=== PATIENT | female | born 1970 | race Caucasian/White ===

== ENCOUNTER 2018-09-21 16:24 | Outpatient (CLI) | payer MEDICARE, MEDICAID, SELFPAY ==
--- NOTE | 2018-09-21 08:58 | DI.RAD_ITS ---
SYMPTOM/DIAGNOSIS: RT HAND PAIN, M79.641M Y93.23 RIGHT THUMB: There are linear lucencies through the distal phalanx of the thumb suspicious for a nondisplaced fracture. Degenerative changes of the interphalangeal joint are also seen. There is a smoothly marginated bony density seen at the dorsal aspect of the interphalangeal joint. Mild degenerative changes are seen at the first metacarpal phalangeal joint. IMPRESSION: Nondisplaced fracture of the distal phalanx of the thumb.
== END 2018-09-21 16:44 ==
PROVIDERS: PCP Internal Medicine; Visit Provider Physician Assistant Medical
DX: S62.524A Nondisplaced fracture of distal phalanx of right thumb, initial encounter for closed fracture (principal); M79.641 Pain in right hand; M19.041 Primary osteoarthritis, right hand; M18.11 Unilateral primary osteoarthritis of first carpometacarpal joint, right hand
CPT/HCPCS: 73140

== ENCOUNTER 2018-11-15 15:57 | Outpatient (REF) | payer MEDICARE, MEDICAID, SELFPAY ==
[2018-11-15 19:15] LABS: Cholesterol 220 mg/dL (50-200); Glucose 93 mg/dL (70-100); HDL Cholesterol 66 mg/dL (40-60); LDL CHOLESTEROL 140 mg/dL (<100); TSH 1.12 uIU/mL (0.358-3.74); Triglyceride 87 mg/dL (30-150)
== END 2018-11-15 16:17 ==
LOC: NCHCN 15:57
PROVIDERS: PCP Internal Medicine; Visit Provider Internal Medicine
DX: F31.9 Bipolar disorder, unspecified (principal); F51.04 Psychophysiologic insomnia; E78.89 Other lipoprotein metabolism disorders; Z13.1 Encounter for screening for diabetes mellitus
CPT/HCPCS: 80061; 82947; 83721; 84443

== ENCOUNTER 2020-03-06 10:25 | Outpatient (CLI) | payer MEDICARE, MEDICAID, SELFPAY ==
[2020-03-08 08:00] LABS: COVID-19 RT-PCR Result NEGATIVE (Negative)
== END 2020-03-06 10:45 ==
PROVIDERS: PCP Internal Medicine; Visit Provider Internal Medicine
DX: Z03.818 Encounter for observation for suspected exposure to other biological agents ruled out (principal)
CPT/HCPCS: U0003

== ENCOUNTER 2020-04-16 12:40 | Outpatient (REF) | payer MEDICARE, MEDICAID, SELFPAY ==
[2020-04-16 20:37] LABS: ALT 25 U/L (14-59); Anion Gap 9.8 mmol/L (3-11); BUN 18 mg/dL (7-18); CO2 29.2 mmol/L (21.0-32.0); CREATININE 1.09 mg/dL (0.55-1.02); Calcium 8.9 mg/dL (8.5-10.1); Chloride 104 mmol/L (98-107); Estimated GFR 52.92 (mL/min/1.73m2); Glucose 99 mg/dL (74-106); LDL CHOLESTEROL 180 mg/dL (<100); Potassium 4.5 mmol/L (3.5-5.1); Sodium 143 mmol/L (136-145)
== END 2020-04-16 13:00 ==
LOC: NCHCN 12:40
PROVIDERS: PCP Internal Medicine; Visit Provider Internal Medicine
DX: L30.9 Dermatitis, unspecified (principal); E04.2 Nontoxic multinodular goiter; E78.89 Other lipoprotein metabolism disorders
CPT/HCPCS: 80048; 83721; 84443; 84460

== ENCOUNTER → 2020-06-21 09:47 | Outpatient (BNVA) | payer MEDICARE, MEDICAID, SELFPAY | PROVIDERS: PCP Internal Medicine; Referring Provider Internal Medicine; Visit Provider Physical Therapy Assistant | DX: Z12.11 Encounter for screening for malignant neoplasm of colon (principal) ==

== ENCOUNTER 2020-07-20 15:00 | Outpatient (REF) | payer MEDICARE, MEDICAID, SELFPAY ==
[2020-07-24 10:13] LABS: COVID-19 RT-PCR Result NEGATIVE (Negative)
== END 2020-07-20 15:20 ==
LOC: NCHCN 15:00
PROVIDERS: PCP Internal Medicine; Visit Provider Internal Medicine
DX: Z20.828 Contact with and (suspected) exposure to other viral communicable diseases (principal)
CPT/HCPCS: U0003

== ENCOUNTER 2020-11-26 16:03 | Outpatient (REF) | payer MEDICARE, MEDICAID, SELFPAY ==
[2020-11-26 15:44] LABS: Lithium 0.8 mmol/l (0.6-1.2)
[2020-11-26 16:00] LABS: Anion Gap 10.4 mmol/L (3-11); BUN 16 mg/dL (7-18); CO2 24.6 mmol/L (21.0-32.0); CREATININE 1.1 mg/dL (0.55-1.02); Calcium 9.2 mg/dL (8.5-10.1); Chloride 104 mmol/L (98-107); Estimated GFR 52.16 (mL/min/1.73m2); Glucose 127 mg/dL (74-106); Magnesium 2.3 mg/dL (1.8-2.4); Potassium 4.8 mmol/L (3.5-5.1); Sodium 139 mmol/L (136-145); TSH (W/Ref FT4) 2.16 uIU/mL (0.36-3.74)
== END 2020-11-26 16:04 | disposition home or self-care (01) ==
LOC: NCHCN 16:03
PROVIDERS: PCP Internal Medicine; Visit Provider Internal Medicine
DX: F31.9 Bipolar disorder, unspecified (principal); Z51.81 Encounter for therapeutic drug level monitoring; Z79.899 Other long term (current) drug therapy
CPT/HCPCS: 80048; 80178; 83735; 84443

== ENCOUNTER 2021-03-28 12:56 | Outpatient (REF) | payer MEDICARE, MEDICAID, SELFPAY ==
[2021-03-28 19:30] LABS: Lithium 0.9 mmol/l (0.6-1.2)
[2021-03-28 19:42] LABS: ALT 34 U/L (14-59); AST 20 U/L (15-37); Alkaline Phosphatase 75 U/L (46-116); BUN 21 mg/dL (7-18); Bilirubin, Total 0.3 mg/dL (0.2-1.0); CREATININE 1.3 mg/dL (0.55-1.02); Calcium 9.3 mg/dL (8.5-10.1); Chloride 103 mmol/L (98-107); Estimated GFR 43.01 (mL/min/1.73m2); Glucose 86 mg/dL (74-106); Potassium 4.6 mmol/L (3.5-5.1); Sodium 136 mmol/L (136-145); TSH 21.93 uIU/mL (0.36-3.74); Total Protein 8.1 g/dL (6.4-8.2)
== END 2021-03-28 12:57 | disposition home or self-care (01) ==
LOC: NCHCN 12:56
PROVIDERS: PCP Internal Medicine; Visit Provider Internal Medicine
DX: F31.9 Bipolar disorder, unspecified (principal); L40.9 Psoriasis, unspecified; Z51.81 Encounter for therapeutic drug level monitoring; Z79.899 Other long term (current) drug therapy
CPT/HCPCS: 80053; 80178; 84443

== ENCOUNTER 2021-04-24 14:50 | Outpatient (REF) | payer MEDICARE, MEDICAID, SELFPAY ==
[2021-04-24 21:09] LABS: Lithium 0.8 mmol/l (0.6-1.2)
[2021-04-24 21:21] LABS: Anion Gap 6.2 mmol/L (3-11); BUN 13 mg/dL (7-18); CO2 28.8 mmol/L (21.0-32.0); CREATININE 1.3 mg/dL (0.55-1.02); Calcium 9.4 mg/dL (8.5-10.1); Chloride 103 mmol/L (98-107); Estimated GFR 43.01 (mL/min/1.73m2); Glucose 84 mg/dL (74-106); Potassium 4.6 mmol/L (3.5-5.1); Sodium 138 mmol/L (136-145); TSH 6.13 uIU/mL (0.36-3.74)
== END 2021-04-24 14:51 | disposition home or self-care (01) ==
LOC: NCHCN 14:50
PROVIDERS: PCP Internal Medicine; Referring Provider Internal Medicine; Visit Provider Internal Medicine
DX: E78.5 Hyperlipidemia, unspecified (principal); F31.9 Bipolar disorder, unspecified
CPT/HCPCS: 80048; 80178; 84443

== ENCOUNTER 2021-08-15 18:15 | Outpatient (REF) | payer MEDICARE, MEDICAID, SELFPAY ==
[2021-08-15 19:36] LABS: Hemoglobin A1C 5.6 % (<5.7)
[2021-08-15 19:47] LABS: ALT 44 U/L (14-59); AST 25 U/L (15-37); Albumin 4.2 g/dL (3.4-5.0); Alkaline Phosphatase 78 U/L (46-116); Anion Gap 8.8 mmol/L (3-11); BUN 16 mg/dL (7-18); Bilirubin, Total 0.2 mg/dL (0.2-1.0); CO2 27.2 mmol/L (21.0-32.0); Calcium 9.2 mg/dL (8.5-10.1); Calculated LDL 199 mg/dL (<100); Chloride 102 mmol/L (98-107); Cholesterol 283 mg/dL (<200); Estimated GFR 58.22 (mL/min/1.73m2); Glucose 92 mg/dL (74-106); HDL Cholesterol 49 mg/dL (40-60); Potassium 4.5 mmol/L (3.5-5.1); Sodium 138 mmol/L (136-145); TSH 4.22 uIU/mL (0.36-3.74); Total Protein 8.2 g/dL (6.4-8.2); Triglyceride 179 mg/dL (<150)
== END 2021-08-15 18:16 | disposition home or self-care (01) ==
LOC: NCHCN 18:15
PROVIDERS: PCP Internal Medicine; Visit Provider Internal Medicine
DX: E66.3 Overweight (principal); F31.9 Bipolar disorder, unspecified
CPT/HCPCS: 80053; 80061; 83036; 84443

== ENCOUNTER → 2021-09-26 10:45 | Outpatient (BNVA) | payer MEDICARE, MEDICAID, SELFPAY | PROVIDERS: PCP Internal Medicine; Referring Provider Internal Medicine; Visit Provider Physical Therapy Assistant | DX: L98.8 Other specified disorders of the skin and subcutaneous tissue (principal) | CPT/HCPCS: 99213 ==

== ENCOUNTER → 2021-10-04 10:16 | Outpatient (BNVA) | payer MEDICARE, MEDICAID, SELFPAY | PROVIDERS: PCP Internal Medicine; Referring Provider Internal Medicine; Visit Provider Surgery | DX: C44.622 Squamous cell carcinoma of skin of right upper limb, including shoulder (principal) | CPT/HCPCS: 11602 ==

== ENCOUNTER 2021-10-04 11:30 | Outpatient (REF) | payer MEDICARE, MEDICAID, SELFPAY ==
--- NOTE | 2021-10-04 10:40 | SKI_PTH ---
PATIENT: Tessa Culver LOC: [facility] U#:[id number] AGE/SX: 50/F ROOM: RE10/04/[address]: Janay Metzger MD : 1970 BED: DIS: 10/04/2021 SPEC #: [id number] RECD: 10/04/21 12:57 STATUS: MELY REQ #: [id number] YAHIR: 10/04/21 10:[address]: Janay Metzger DEPT: Surgical Specimen RECD BY: Yenny Schultz ENTERED: 10/04/21 12:58 SP TYPE: ELIZABETH OROSCO DR: Alessandro Hollis Tissues: 1 - SKIN BIOPSY(SHAVE/PUNCH) Procedures: SKIN LEVEL 4 Comments: [id number]
--- OUTSIDE RECORDS SUMMARY | 2021-10-04 11:45 | XMS_ITS ---
:1970 Author Care Team Providers Name Role Phone LUPILLO GONZALES MD Primary Care Provider [phone] Allergies Code Code System Name Reaction Severity Status Onset NKDA ? Medications Name Status Start Date Stop Date ? ? amoxicillin 875 mg-potassium Completed ? 05/2021 clavulanate 125 mg tablet clonazepam 0.5 mg tablet Completed ? TAKE 1 TABLET BY MOUTH AT BEDTIME. MAY TAKE AN ADDITI ONAL 2 TABLETS PER MONTH. disulfiram 250 mg tablet Completed ? 021 TK 2 TS PO IN THE MORNING disulfiram 500 mg tablet Completed ? TAKE 1 TABLET BY MOUTH EVERY DAY. DO NOT START UNTIL 24 HOURS A LCOHOL FREE drospirenone 3 mg-ethinyl estradiol 0.02 mg tablet Completed ? 05/02/2021 TAKE 1 TABLET BY MOUTH DAILY fluocinonide 0.05 % topical cream Completed ? 05/02/2021 APPLY TO HAND RASH TWICE DAILY gabapentin 400 mg capsule Completed ? 2017 lamotrigine 200 mg tablet Active ? Not av ailable TAKE 1 TABLET BY MOUTH TWICE DAILY lithium carbonate ER 450 mg tablet,extended release Active ? Not available TAKE 1 TABLET BY MOUTH TWICE DAILY metronidazole 500 mg tablet Completed ? 04/17 TK 1 T PO TID naltrexone 50 mg tablet Completed ? 05/02/20 21 TK 1 T PO D penicillin V potassium 500 mg Completed ? tablet Plan B 0.75 mg tablet Completed 07/05/2010 07/18/2010 1 (one) Tablet: Q 12 hr ziprasidone 60 mg capsule Active ? Not av ailable Problems Name Status Onset Date Source ? 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 History Cervical Intraepithelial Neoplasia Unknown ? History Grade 1 Abnormal Cervical Papanicolaou Smear Unknown ? History Atypical Squamous Cells of Unknown ? Histo ry Undetermined Significance on Cervical Papanicolaou Smear SNOMED CT Concept Unknown ? History Procedures Date Name Performed by ? 08/21/2016 Leep Information not avai lable Notes: LEDA 2 ? Orthopedic Surgery Information not avai lable Notes: L ACL 02/15/2018 MAMMO, Screening, Tomosynthesis, [facility] Radiology (Internal) Bilateral [address] [place] [address] ([phone] ([address]) 01/14/2019 MAMMO, Screening, Tomosynthesis, [facility] Radiology (Internal) Bilateral [address], [place] [id number] (Work Place) 09/21/2019 US, Breast [facility] (Internal) [address] [place] [address] (Work Place) Results Lab Results Date Name Specimen Result Interpretation Description Value Range Status Address ? 05/02/2021 Pap Test, MISC ? Hpv see report ? Final [facility], Hospita l Lab Cervical (Interna l): [address] ? ? MISC ? Pap see report ? Final [facility] L [facility] (Internal) : [address] ? ? MISC ? Report (see ? Final [facility] below) Hospital L ab (Internal) : [address] 01/14/2019 Pap Test, MISC - Hpv see report ? Final [facility], Hospita l Lab Cervical (Interna l): [address] ? ? MISC - Pap see report ? Final [facility] L ab (Internal) : [address] ? ? MISC - Report (added) ? Corrected [facility] results Hospital Lab below (Internal) : [address] 02/15/2018 Pap Test, MISC - Hpv see report ? Final [facility], Hospita l Lab Cervical (Interna l): [address] ? ? MISC - Pap see report ? Final [facility] Hospital L ab (Internal) : [address] ? ? MISC - Report (added) ? Corrected [facility] results Hospital Lab below (Internal) : [address] Past Encounters 05/02/2021 Gynecologic Examination Pipo Farai MD: [address] [place] [address], Ph. Social History Tobacco Smoking Status Former Smoker Vaccine List None recorded. Plan of Care Reminders Provider Appointments None ? ? recorded. Lab None ? ? recorded. Referral None ? ? recorded. Procedures None ? ? recorded. Surgeries None ? ? recorded. Imaging None ? ? recorded. Vitals 05/02/2021 03:50PM HME 20 Weight Blood Pressure 72.08 kg 100/58 mm[Hg] 02/15/2018 11:00AM HME 20 Height Weight BMI Blood Pressure 165.1 cm 64.77 kg 23.8 kg/m2 112/66 mm[Hg] 02/19/2016 Height Weight Blood Pressure 167.64 cm 65.18 kg 92/58 mm[Hg] 06/06/2014 Height Weight Blood Pressure 167.64 cm 72.12 kg 92/60 mm[Hg] 06/10/2013 Blood Pressure 92/68 mm[Hg] 12/10/2012 Weight Blood Pressure 77.07 kg 96/64 mm[Hg] 05/04/2012 Blood Pressure 90/68 mm[Hg] 03/30/2012 Height Weight Blood Pressure 167.64 cm 70.4 kg 104/64 mm[Hg] 03/10/2011 Height Weight Blood Pressure 165.74 cm 77.56 kg 94/68 mm[Hg] 03/08/2010 Height Weight Blood Pressure 165.74 cm 73.71 kg 106/70 mm[Hg] 04/07/2007 Height Weight 166.37 cm 67.13 kg
== END 2021-10-04 11:31 | disposition home or self-care (01) ==
LOC: LBN 11:30
PROVIDERS: PCP Internal Medicine; Visit Provider Surgery
DX: C44.622 Squamous cell carcinoma of skin of right upper limb, including shoulder (principal)
CPT/HCPCS: 88305

== ENCOUNTER → 2021-10-15 10:49 | Outpatient (BNVA) | payer MEDICARE, MEDICAID, SELFPAY | PROVIDERS: PCP Internal Medicine; Referring Provider Internal Medicine; Visit Provider Surgery | DX: C44.622 Squamous cell carcinoma of skin of right upper limb, including shoulder (principal) | CPT/HCPCS: 99212 ==

== ENCOUNTER 2021-10-21 09:50 | Outpatient (REF) | payer MEDICARE, MEDICAID, SELFPAY ==
[2021-10-21 20:04] LABS: Abs Immature Grans 0.03 10^3/uL (0.0-0.06); Absolute Basophil Count 0.08 10^3/uL (0.0-0.2); Absolute Lymphocyte Count 2.56 10^3/uL (1.2-3.4); Absolute Monocyte Count 0.58 10^3/uL (0.1-0.8); Absolute Neutrophil Count 4.16 10^3/uL (1.2-6.7); Basophils % 1.1; Eosinophils % 1.3; HCT 41.2 % (36.0-46.0); HGB 13.1 g/dL (11.2-15.7); Immature Grans % 0.4; Lymphocytes % 34.1; MCH 30.5 pg (27.0-33.0); MCHC 31.8 % (32.0-36.0); MCV 95.8 fL (80-95); Monocytes % 7.7; Neutrophils % 55.4; Nucleated RBC 0 %; Platelet Count 309 10^3/uL (130-400); RDW 12.6 % (11.7-14.6); RDW-SD 44.6 fL; WBC 7.51 10^3/uL (4.4-10.8)
== END 2021-10-21 09:51 | disposition home or self-care (01) ==
LOC: NCHCN 09:50
PROVIDERS: PCP Internal Medicine; Visit Provider Internal Medicine
DX: F31.9 Bipolar disorder, unspecified (principal)
CPT/HCPCS: 85025

== ENCOUNTER 2021-10-21 13:16 | Outpatient (REF) | payer MEDICARE, MEDICAID, SELFPAY | END 2021-10-21 13:17 | disposition home or self-care (01) | LOC: NCHCN 13:16 | PROVIDERS: PCP Internal Medicine; Visit Provider Internal Medicine ==

== ENCOUNTER → 2021-11-15 10:26 | Outpatient (BNVA) | payer MEDICARE, MEDICAID, SELFPAY | PROVIDERS: PCP Internal Medicine; Referring Provider Internal Medicine; Visit Provider Physical Therapy Assistant | DX: R69 Illness, unspecified (principal) ==

== ENCOUNTER 2021-11-20 09:59 | Outpatient (REF) | payer MEDICARE, MEDICAID, SELFPAY ==
[2021-11-20 21:38] LABS: Abs Immature Grans 0.03 10^3/uL (0.0-0.06); Absolute Basophil Count 0.06 10^3/uL (0.0-0.2); Absolute Eosinophil Count 0.13 10^3/uL (0.0-0.7); Absolute Lymphocyte Count 2.39 10^3/uL (1.2-3.4); Absolute Monocyte Count 0.42 10^3/uL (0.1-0.8); Absolute Neutrophil Count 3.85 10^3/uL (1.2-6.7); Basophils % 0.9; Eosinophils % 1.9; HCT 39.2 % (36.0-46.0); HGB 12.6 g/dL (11.2-15.7); Immature Grans % 0.4; Lymphocytes % 34.7; MCH 30.2 pg (27.0-33.0); MCHC 32.1 % (32.0-36.0); MPV 10.1 fL (8.0-11.0); Monocytes % 6.1; Nucleated RBC 0 %; Platelet Count 335 10^3/uL (130-400); RBC 4.17 10^6/uL (3.93-5.22); RDW 12.6 % (11.7-14.6); RDW-SD 43.6 fL; WBC 6.88 10^3/uL (4.4-10.8)
== END 2021-11-20 10:00 | disposition home or self-care (01) ==
LOC: NCHCN 09:59
PROVIDERS: PCP Internal Medicine; Visit Provider Internal Medicine
DX: F31.9 Bipolar disorder, unspecified (principal); Z79.899 Other long term (current) drug therapy; Z51.81 Encounter for therapeutic drug level monitoring
CPT/HCPCS: 85025

== ENCOUNTER 2021-12-19 18:37 | Outpatient (REF) | payer MEDICARE, MEDICAID, SELFPAY ==
[2021-12-19 19:05] LABS: Abs Immature Grans 0.03 10^3/uL (0.0-0.06); Absolute Basophil Count 0.07 10^3/uL (0.0-0.2); Absolute Eosinophil Count 0.08 10^3/uL (0.0-0.7); Absolute Monocyte Count 0.51 10^3/uL (0.1-0.8); Absolute Neutrophil Count 4.48 10^3/uL (1.2-6.7); Basophils % 0.9; Eosinophils % 1.1; HCT 39.9 % (36.0-46.0); HGB 12.5 g/dL (11.2-15.7); Immature Grans % 0.4; Lymphocytes % 30.8; MCH 30.3 pg (27.0-33.0); MCHC 31.3 % (32.0-36.0); MCV 97 fL (80-95); Monocytes % 6.8; Platelet Count 319 10^3/uL (130-400); RBC 4.13 10^6/uL (3.93-5.22); RDW 12.6 % (11.7-14.6); RDW-SD 44.9 fL; WBC 7.47 10^3/uL (4.4-10.8)
== END 2021-12-19 18:38 | disposition home or self-care (01) ==
LOC: NCHCN 18:37
PROVIDERS: PCP Internal Medicine; Visit Provider Internal Medicine
DX: Z51.81 Encounter for therapeutic drug level monitoring (principal); Z79.899 Other long term (current) drug therapy
CPT/HCPCS: 85025

== ENCOUNTER → 2022-06-06 13:37 | Outpatient (CLI) | payer MEDICARE, MEDICAID, SELFPAY ==
--- NOTE | 2022-06-06 12:00 | DI.RAD_ITS ---
Exam(s) XR HUMERUS RT EXAM: XR HUMERUS RT CLINICAL HISTORY: PAIN IN RT SHOULDER-M25.511. TECHNIQUE: 2D digital imaging was performed. COMPARISON: No exams were available for comparison FINDINGS: Two views No evidence acute fracture or dislocation. Greater tuberosity is intact but exhibits degenerative cy sts. IMPRESSION: No evidence of fracture. DATA REPOSITORY: RADIATION DOSE DELIVERED:
--- NOTE | 2022-06-06 12:00 | DI.RAD_ITS ---
Exam(s) XR SHOULDER RT COMPLETE 2+V EXAM: XR SHOULDER RT COMPLETE 2+V CLINICAL HISTORY: PAIN IN RT SHOULDER-M25.511. TECHNIQUE: 2D digital imaging was performed. COMPARISON: No exams were available for comparison FINDINGS: Six views No evidence fracture or dislocation soft. Degenerative cysts are noted in the greater tuberosity but there are no fractures of the greater tuberosity evident. No degenerative changes evident in the gl enohumeral joint and AC joint. Bone density appears normal. Slight deformity in the lateral half of the clavicle may be a healed fracture site. AC joint is not distracted. IMPRESSION: No acute fractures evident. DATA REPOSITORY: RADIATION DOSE DELIVERED:
== END ==
PROVIDERS: PCP Internal Medicine; Visit Provider Physician Assistant
DX: M25.511 Pain in right shoulder (principal)
CPT/HCPCS: 73030; 73060

== ENCOUNTER → 2022-07-01 10:04 | Outpatient (BNVA) | payer MEDICARE, MEDICAID, SELFPAY | PROVIDERS: PCP Internal Medicine; Referring Provider Internal Medicine; Visit Provider Surgery | DX: Z12.11 Encounter for screening for malignant neoplasm of colon (principal) | CPT/HCPCS: 99212 ==

== ENCOUNTER 2022-07-14 08:53 | Day surgery (SDC) | payer MEDICARE, MEDICAID, SELFPAY ==
--- NOTE | 2022-07-14 06:36 | W.COLOREPORT ---
Date of service: 07/14/22 Time of Service: Colonoscopy Report Date of procedure: 07/14/22 Pre-op diagnosis general: screening Post-op diagnosis procedure note: other (diverticulosis and polyp) Procedure: Colonoscopy with polypectomy Surgeon: Janay Metzger Anesthesia Type: General:No Airway Estimated blood loss (mL): 2 Pathology: other (rectal polyp) Complications: None Disposition: same day Indications: Pt seen at the request of PCP regarding colon cancer screening. Pt has never had colon cancer screening before.? They denies problems with constipation or diarrhea.? They deny any pain or difficulty with bowel movements, or rectal bleeding.? There is no family history of any colon cancer.? Pt has not had any unexplained weight loss.? Their appetite is good.? ?They deny heart, lung, or kidney problems. They are not having heartburn or indigestion. They have not had any prior colo-rectal surgery.? The patient? has not had a prior SUSAN.? They deny any problems with anesthesia in the past. Prep: Miralax/Dulcolax Procedure Start Time: Procedure End Time: :54 Retraction Time: 14 minutes Findings: one polyps and mild sigmoid diverticulosis Procedure Description: After informed consent was obtained the patient was taken to the procedure room and placed in a left decubitous position. Monitors were applied and a time out was done. The patients name, date of , procedure, allergies to medications and metal in their body was reviewed. The patient was then sedated. Once sedated and comfortable a rectal exam was done. External exam was normal. Internal exam revealed a normal sphincter tone and no palpable masses. The scope was then introduced and retro-flexed. No internal hemorrhoids, polyps or masses were identified on retro-flexion. The scope was then advanced to the cecum without difficulty. The ileocecal vlave and appendiceal orifice were identified. The prep was good. The scope was then slowly retracted over 14 minutes back into the rectum. Polyps were removed with cold forceps in the rectum. There was mild sigmoid diverticulosis noted. The scope was removed and the patient was woken up and taken back to Same day surgery in stable condition. The patient tolerated the procedure well and there were no immediate complications.
--- NOTE | 2022-07-14 06:37 | W.PM.DSUDISC ---
Date of service: 07/14/22 Time of Service: 10:59 Discharge Plan Disposition Patient Disposition: HOME Condition: Good Discharge Details Reason For Visit: Colon Cancer screening Attending Provider: Janay Metzger Primary Care Provider: Alessandro Hollis Home Meds and New Rx's Prescriptions: Continued ziprasidone HCl [Geodon] 60 mg capsule 60 mg PO BID Rx Instructions: give with food (meal/snack) lamotrigine [Lamictal] 200 MG tablet 200 mg PO BID ziprasidone HCl [Geodon] 40 MG capsule 40 mg PO HS fluocinonide 0.1 % cream 1 applic topical BID triamcinolone acetonide 0.1 % cream 1 applic topical DAILY Discontinued bisacodyl [Dulcolax (bisacodyl)] 5 mg tablet,delayed release (DR/EC) 5 mg PO ONCE Qty: 4 0RF Rx Instructions: Take according to provider's instructions for colonoscopy prep. polyethylene glycol 3350 17 gram/dose powder 17 g PO ONCE Qty: 238 0RF Rx Instructions: To be taken as directed by prescriber's office for colonoscopy prep. Discharge Instructions Additional Instructions: Findings: mild diverticulosis and one polyp Follow up: 5 years more then likely Please call if you develop: fevers >101.5 Nausea or Vomiting Abdominal pain that is not transient Rectal bleeding that is more then a tbsp A hard abdomen and inability to pass gas DAY SURGERY UNIT POST ENDOSCOPY INSTRUCTIONS Instructions for everyone who is given Anesthesia: For your safety, please do the following for the next 24 Hours: a. Do not drive or operate dangerous equipment b. Do not drink alcohol beverages or use any recreational drugs for the first 24 hours or while taking pain medications. The medications in your body may have a reaction that can be dangerous. c. Do not make any important decisions or sign any important papers 1. Generally there are no restrictions on your activity after a day or so has gone by, but you may feel a bit fatigued for a few days. 2. After you arrive home you may have a light meal and return to a normal diet as you can tolerate it without feeling sick to your stomach. 3. After surgery, you may feel pain or discomfort. This should be only transient, but if it persists please contact your doctor. 4. If there are any questions regarding the findings of your procedure, please feel free to contact your doctor. 6. If you are unable to contact your doctor with a problem, contact the hospital at [phone]. 7. Continue all your regular medications unless directed otherwise. I understand the above instructions and have no questions. Signature of Patient or Responsible Adult Escort Date/Time Name of Responsible Adult Escort Signature of Nurse Date/Time Activity:: Activity as Tolerated Equipment/Supplies:: No Equipment Needed Diet:: As Tolerated
[2022-07-14 09:42] VITALS: BP 110/76; PULSE 71; RESP 16; TEMP 36.6; O2SAT 97
[2022-07-14] MEDS: Lactated Ringers 1,000 ML 80 ML IV (10:00)
--- NOTE | 2022-07-14 10:18 | W.ANESPRE ---
General Info Date of Service Date Performed: 07/14/22 Height: 5 ft 6 in Weight: 76.3 kg Body Mass Index (BMI): 27.1 Surgical Procedure: Operation Date: 07/14/22 10:35 Proposed Procedure Side Surgeon p Colonoscopy Janay Metzger MD Meds Allergies and Home Medications Allergies Allergy/AdvReac Type Severity Reaction Status Date / Time olanzapine [From Zyprexa] AdvReac Intermediate 50 LB WT Unverified 07/14/22 09:16 GAIN divalproex sodium AdvReac Mild BLOATING,WT Unverified 07/14/22 09:16 [From Depakote] GAIN Home Medication Medication Instructions Recorded lamotrigine 200 mg tablet 200 mg PO BID 09/18/14 (Lamictal) ziprasidone HCl 40 mg capsule 40 mg PO HS 09/18/14 (Geodon) fluocinonide 0.1 % topical cream 1 applic topical BID 05/25/20 triamcinolone acetonide 0.1 % 1 applic topical DAILY 05/28/21 topical cream ziprasidone HCl 60 mg capsule 60 mg PO BID 09/26/21 (Geodon) bisacodyl 5 mg tablet,delayed 5 mg PO ONCE #4 tabs 07/01/22 release (Dulcolax (bisacodyl)) polyethylene glycol 3350 17 17 g PO ONCE #238 grams 07/01/22 gram/dose oral powder Current Visit Medications: Current Medications Generic Name Dose Route Start Last Admin Trade Name Freq PRN Reason Stop Dose Admin Hyoscyamine Sulfate 0.125 mg 07/14/22 06:37 Hyoscyamine 0.125 Mg Sl/Oral/Chew SL DIRECTED PRN Ringer's Solution 1,000 mls @ 80 mls/hr 07/14/22 06:00 07/14/22 10:00 IV 08/10/22 23:59 80 mls/hr INFUSION CHRISTINE Administration IV Miscellaneous Supplies 1 each 07/14/22 06:00 Iv Access IV 08/10/22 23:59 DIRECTED CHRISTINE Ondansetron HCl 4 mg 07/14/22 06:37 Ondansetron 4 Mg/2 Ml Vial IVP Q4H PRN PRN Nausea / Vomiting Sodium Chloride 0 ml 07/14/22 06:00 Normal Saline Flush 10 Ml Syr IV 08/10/22 23:59 PRN PRN Sodium Chloride 0 ml 07/14/22 06:00 Normal Saline 10 Ml Vial IJ 08/10/22 23:59 DIRECTED PRN Sterile Water 0 ml 07/14/22 06:00 Water,Injection,Sterile 10 Ml Vial IJ 08/10/22 23:59 DIRECTED PRN PFSH Active Problems Active Problems: Problem Status Onset Code Screening for colon cancer Z12.11 Skin cancer, basal cell C44.91 Skin lesion L98.9 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 Medical History Medical History Bipolar 1 disorder Chronic kidney disease LEDA II (cervical intraepithelial neoplasia II) Dyslipidemia Hand eczema History of alcohol abuse Multinodular goiter Overweight Psoriasis Medical History Comments:: Miracle Daily Surgical History Surgical History (Updated 07/09/22 @ 11:06 by Deedee Bojorquez) H/O local excision of skin lesion (~10/04/21) History of repair of ACL Left Hx of emergency section Tobacco Smoking/Tobacco Use Status: Former Tobacco Use Alcohol Alcohol Intake: never Substance Use Substance use: Daily Substance use type: marijuana Vital Signs and Lab Results Vital Signs Most Recent Vital Signs in EMR: Most Recent Vital Signs Temp Pulse Resp BP Pulse Ox 36.6 C 71 16 110/76 97 07/14/22 09:42 07/14/22 09:42 07/14/22 09:42 07/14/22 09:42 07/14/22 09:42 Lab Results Blood Type / Crossmatch: No Data to Display Complete Blood Count: No Data to Display Complete Metabolic Panel: No Data to Display Liver Function Panel: No Data to Display Coagulation Panel: No Data to Display Cardiac Panel: No Data to Display Arterial Blood Gas: No Data to Display Venous Blood Gas: No Data to Display Pancreas Panel: No Data to Display Thyroid Panel: No Data to Display Infectious Disease: No Data to Display Blood Cultures: No Data to Display Toxicology Panel: No Data to Display Panel: No Data to Display Anesthesia Assessment and Plan Anesthesia History Personal History: No History of Anesthesia Complications Family History: No Family History of Anesthesia Complications Exercise Tolerance Exercise Tolerance: Metabolic Equivalents>4 Pertinent Negatives Pertinent Negatives: No Symptoms of GERD, No Major Cardiovascular Symptoms or Complaints, No Major Pulmonary Symptoms or Complaints (Smokes marijuana daily, chronic cough) and No History of CVA/TIA Cardiac & Pulmonary Exam Cardiac Exam: Normal S1/S2 Heart Sounds Pulmonary Exam: Clear Bilateral Breath Sounds Implantable Cardiac Device Does patient have a Pacemaker or an ICD?: No Airway Exam Known Difficult Airway: No Mallampati Class: 1 Mouth Opening: Normal (> 3cm) Thyromental Distance: Greater than 3 cm Neck Range of Motion: Full ROM Neck Circumference: Normal Teeth Condition: Normal Dentition ASA Classification ASA Score: ASA 2 Emergency Case?: No NPO Status NPO Status: NPO Clears >2 hours, Solids >8 hours Status Status: Negative HCG Anesthesia Plan Resuscitation Status: Full Code Anesthesia Technique: General Anesthesia Airway Planned: Natural Airway Monitors Used: Standard Monitors
[2022-07-14 10:19] VITALS: BMI 27.1
--- NOTE | 2022-07-14 10:50 | BOWEL_PTH ---
PATIENT: Tessa Culver LOC: [facility] U#:[id number] AGE/SX: 51/F ROOM: RE07/14/[address]: Janay Metzger MD : 1970 BED: DIS: 07/14/2022 SPEC #: [id number] RECD: 07/14/22 12:39 STATUS: MELY REQ #: [id number] YAHIR: 07/14/22 10:[address]: Janay Metzger DEPT: Surgical Specimen RECD BY: Yenny Schultz ENTERED: 07/14/22 12:39 SP TYPE: Bowel OTHR DR: Alessandro Hollis Tissues: 1 - BIOPSY BOWEL Procedures: GROSS AND MICRO LEVEL 4 Comments: [id number]
[2022-07-14 11:03] VITALS: BP 126/98; PULSE 71; RESP 16; TEMP 36.2; O2SAT 100
--- NOTE | 2022-07-14 11:04 | W.ANESPOSTOP ---
Postoperative Evaluation Date, Time and Location Date Performed: 07/14/22 Time Performed: 11:04 Patient Location: Day Surgery Unit Vital Signs Most Recent Imported Vital Signs: Most Recent Vital Signs Temp Pulse Resp BP Pulse Ox 36.6 C 71 16 110/76 97 07/14/22 09:42 07/14/22 09:42 07/14/22 09:42 07/14/22 09:42 07/14/22 09:42 Most Recent Manually Entered Vital Signs: Adult Blood Pressure: 126/98 Heart Rate: 71 Respirations: 12 Oxygen Saturation (%): 100 Temperature (C): 36.3 C Pain Score (0-10 Scale): 0 Pain Score Most Recent Pain Score: Most Recent Pain Score Pain Level 0 07/14/22 09:42 Assessment Mental Status: Awake (Alert & Oriented to Patient Baseline) Airway and Respiratory Function: Patent airway with normal (patient baseline) respiratory exam Cardiovascular Function: Hemodynamically Stable Hydration Status: Adequately Hydrated Nausea & Vomiting: No Nausea or Vomiting Pain: Pt. Denies Any Pain Peripheral Nerve Block: Patient did not receive a nerve block
[2022-07-14 11:05] VITALS: BP 126/98; PULSE 71; RESP 12; TEMPC 36.3; O2SAT 100
[2022-07-14] MEDS: Hyoscyamine 0.125 MG SL/ORAL/CHEW SL (11:12)
[2022-07-14 11:30] VITALS: BP 119/72; PULSE 63; RESP 16; TEMP 36; O2SAT 97
== END 2022-07-14 11:50 | disposition home or self-care (01) ==
PROVIDERS: PCP Internal Medicine; Visit Provider Surgery
PROC: 0DJD8ZZ Inspection of Lower Intestinal Tract, Via Natural or Artificial Opening Endoscopic (ICD-10-PCS; CPT 45378; principal; 2022-07-14 10:30)
DX: Z12.11 Encounter for screening for malignant neoplasm of colon (principal); K62.1 Rectal polyp; K57.30 Diverticulosis of large intestine without perforation or abscess without bleeding
CPT/HCPCS: 45380; 88305; J3490

== ENCOUNTER 2022-08-20 17:54 | Outpatient (REF) | payer MEDICARE, MEDICAID, SELFPAY ==
[2022-08-20 21:45] LABS: Anion Gap 6.9 mmol/L (3-11); BUN 20 mg/dL (7-18); CO2 29.1 mmol/L (21.0-32.0); CREATININE 1.1 mg/dL (0.55-1.02); Calcium 9.5 mg/dL (8.5-10.1); Calculated LDL 192 mg/dL (<100); Chloride 104 mmol/L (98-107); Cholesterol 278 mg/dL (<200); Estimated GFR 60.08 (mL/min/1.73m2); Glucose 103 mg/dL (74-106); HDL Cholesterol 58 mg/dL (40-60); Potassium 4.8 mmol/L (3.5-5.1); Sodium 140 mmol/L (136-145); Triglyceride 141 mg/dL (<150)
[2022-08-20 22:07] LABS: Hemoglobin A1C 5.7 % (<5.7)
[2022-08-21 16:13] LABS: TSH 1.02 uIU/mL (0.36-3.74)
== END 2022-08-20 17:55 | disposition home or self-care (01) ==
LOC: NCHCN 17:54
PROVIDERS: PCP Internal Medicine; Visit Provider Internal Medicine
DX: E04.2 Nontoxic multinodular goiter (principal); E66.3 Overweight; Z79.899 Other long term (current) drug therapy; E78.5 Hyperlipidemia, unspecified; R79.89 Other specified abnormal findings of blood chemistry
CPT/HCPCS: 80048; 80061; 83036; 84443

== ENCOUNTER 2022-11-18 01:20 | Outpatient (CLI) | payer MEDICARE, MEDICAID, SELFPAY ==
--- NOTE | 2022-11-18 07:45 | DI.MRI_ITS ---
Exam(s) MR LOWER JOINT LT WO EXAM: MR LOWER JOINT LT WO CLINICAL HISTORY: CHRONIC DERANGEMENT OF MEDIAL MENSICUS, LT KNEE, M23.204. TECHNIQUE: Multiplanar multisequence MRI was performed. COMPARISON: No exams were available for comparison. Lack of plain film comparison somewhat limits i nterpretation particularly patient who as exams degenerative changes and postsurgical changes. FINDINGS: There is in ACL graft which appears intact. The posterior cruciate ligament, medial and lateral edison ateral ligament complex as well as extensor mechanism appear intact. Large joint effusion. Synovial cysts / ganglia seen posterior to the femoral condyles. Tiny Mercado's cyst. Severe degenerative changes of the medial femoral tibial joint, with loss of bone articular cartilage and abnormal signal in the underlying bone. Prominent periarticular spurring. Medial meniscus is d iminutive and peripherally displaced showing degenerative intrasubstance signal. Large defect in pos terior horn with large gap which may be represent a chronic radial tear. Some linear intrasubstance signal extending horizontally into the body. This could be a degenerative versus more acute tear. Lateral meniscus shows degenerative signal in the anterior horn. There is a question of a longitudin al tear in the posterior horn. Mild patellofemoral joint degenerative changes. Cartilage thinning and irregularity over the lateral femoral condyle lateral tibial plateau. IMPRESSION: Severe degenerative changes of the medial femoral tibial joint. Large gap in the posterior horn of the medial meniscus may represent a chronic radial tear. Question of acute longitudinal tear in the posterior horn of the lateral meniscus. DATA REPOSITORY:
== END 2022-11-18 01:40 ==
LOC: DI 01:20
PROVIDERS: PCP Internal Medicine; Visit Provider Internal Medicine
DX: M25.562 Pain in left knee (principal); S83.282A Other tear of lateral meniscus, current injury, left knee, initial encounter; Z98.890 Other specified postprocedural states; M17.12 Unilateral primary osteoarthritis, left knee; M25.862 Other specified joint disorders, left knee
CPT/HCPCS: 73721

== ENCOUNTER 2023-02-12 18:40 | Outpatient (REF) | payer MEDICARE, MEDICAID, SELFPAY ==
[2023-02-12 19:10] LABS: Abs Immature Grans 0.02 10^3/uL (0.0-0.06); Absolute Basophil Count 0.08 10^3/uL (0.0-0.2); Absolute Eosinophil Count 0.14 10^3/uL (0.0-0.7); Absolute Lymphocyte Count 3.58 10^3/uL (1.2-3.4); Absolute Monocyte Count 0.68 10^3/uL (0.1-0.8); Absolute Neutrophil Count 5.07 10^3/uL (1.2-6.7); Basophils % 0.8; Eosinophils % 1.5; HCT 41.3 % (36.0-46.0); HGB 13.8 g/dL (11.2-15.7); Immature Grans % 0.2; Lymphocytes % 37.4; MCH 31.6 pg (27.0-33.0); MCHC 33.4 % (32.0-36.0); MCV 95 fL (80-95); MPV 9.8 fL (8.0-11.0); Monocytes % 7.1; Platelet Count 367 10^3/uL (130-400); RBC 4.37 10^6/uL (3.93-5.22); RDW 12.2 % (11.7-14.6); RDW-SD 42.8 fL; WBC 9.57 10^3/uL (4.4-10.8)
[2023-02-12 19:18] LABS: Hemoglobin A1C 5.3 % (<5.7)
[2023-02-12 19:24] LABS: ALT 38 U/L (14-59); AST 23 U/L (15-37); Albumin 4.1 g/dL (3.4-5.0); Alkaline Phosphatase 117 U/L (46-116); Anion Gap 7.7 mmol/L (3-11); BUN 17 mg/dL (7-18); Bilirubin, Total 0.3 mg/dL (0.2-1.0); CO2 30.3 mmol/L (21.0-32.0); CREATININE 1.2 mg/dL (0.55-1.02); Calcium 9.4 mg/dL (8.5-10.1); Calculated LDL 113 mg/dL (<100); Chloride 102 mmol/L (98-107); Cholesterol 187 mg/dL (<200); Estimated GFR 53.79 (mL/min/1.73m2); Glucose 102 mg/dL (74-106); HDL Cholesterol 48 mg/dL (40-60); Potassium 4.6 mmol/L (3.5-5.1); Sodium 140 mmol/L (136-145); TSH 3.71 uIU/mL (0.36-3.74); Total Protein 8.2 g/dL (6.4-8.2); Triglyceride 132 mg/dL (<150)
== END 2023-02-12 18:41 | disposition home or self-care (01) ==
LOC: NCHCN 18:40
PROVIDERS: PCP Internal Medicine; Visit Provider Internal Medicine
DX: N18.2 Chronic kidney disease, stage 2 (mild) (principal); R73.03 Prediabetes; E04.2 Nontoxic multinodular goiter; F31.9 Bipolar disorder, unspecified; E78.5 Hyperlipidemia, unspecified
CPT/HCPCS: 80053; 80061; 83036; 84443; 85025

== ENCOUNTER → 2023-11-05 01:41 | Outpatient (CLI) | payer MEDICARE, MEDICAID, SELFPAY ==
--- NOTE | 2023-11-05 | DI.US_ITS ---
Exam(s) US LOWER EXTREMITY VENOUS RT EXAM: US LOWER EXTREMITY VENOUS RT CLINICAL HISTORY: PAIN RT LOWER LEG, M79.661. TECHNIQUE: Lower extremity venous ultrasound performed using grayscale, color-flow, and spectral Do ppler analysis. COMPARISON: No exams were available for comparison FINDINGS: The common femoral, femoral and popliteal veins demonstrate normal compressibility, augmentation, and color Doppler. The posterior tibial veins are patent. No saphenous vein thrombosis or other superfi cial venous thrombosis is seen. No hematoma or Mercado's cyst is seen. IMPRESSION: Negative lower extremity ultrasound. No evidence of DVT. DATA REPOSITORY:
== END ==
PROVIDERS: PCP Internal Medicine; Visit Provider Internal Medicine
DX: M79.661 Pain in right lower leg (principal)
CPT/HCPCS: 93971

== ENCOUNTER → 2024-01-15 00:28 | Outpatient (CLI) | payer MEDICARE, MEDICAID, SELFPAY ==
--- NOTE | 2024-01-15 09:35 | DI.RAD_ITS ---
Exam(s) XR KNEE RT 3V AP,LAT,AMREN EXAM: XR KNEE RT 3V AP,LAT,MAREN CLINICAL HISTORY: OSTEOARTHRITIS RT KNEE JOINT, M17.11. TECHNIQUE: 2D digital imaging was performed. Three views. COMPARISON: No exams were available for comparison FINDINGS: BONES: No acute fracture is present. No bony destructive lesion is seen. JOINTS: The knee is normally aligned. No joint effusion is seen. Joint spaces are maintained. Ther e is minimal periarticular spurring. SOFT TISSUE: Normal. IMPRESSION: Minimal degenerative changes. DATA REPOSITORY: RADIATION DOSE DELIVERED:
== END ==
PROVIDERS: PCP Internal Medicine; Visit Provider Internal Medicine
DX: M17.11 Unilateral primary osteoarthritis, right knee (principal)
CPT/HCPCS: 73562

== ENCOUNTER 2024-11-17 20:05 | Outpatient (REF) | payer MEDICARE, MEDICAID, SELFPAY ==
[2024-11-17 20:26] LABS: ALT 29 U/L (14-59); AST 25 U/L (15-37); Alkaline Phosphatase 90 U/L (46-116); Anion Gap 8.5 mmol/L (3-11); BUN 16 mg/dL (7-18); Bilirubin, Total 0.2 mg/dL (0.2-1.0); CO2 27.5 mmol/L (21.0-32.0); CREATININE 1.1 mg/dL (0.55-1.02); Calcium 9.1 mg/dL (8.5-10.1); Calculated LDL 71 mg/dL (<100); Chloride 103 mmol/L (98-107); Cholesterol 159 mg/dL (<200); Estimated GFR 58.97 (mL/min/1.73m2); Glucose 113 mg/dL (74-106); HDL Cholesterol 61 mg/dL (>or=50); Potassium 4.2 mmol/L (3.5-5.1); Sodium 139 mmol/L (136-145); TSH 3.62 uIU/mL (0.36-3.74); Total Protein 7.8 g/dL (6.4-8.2); Triglyceride 136 mg/dL (<150)
[2024-11-17 20:32] LABS: Hemoglobin A1C 5.6 % (<5.7)
== END 2024-11-17 20:06 | disposition home or self-care (01) ==
LOC: NCHCN 20:05
PROVIDERS: PCP Internal Medicine; Visit Provider Internal Medicine
DX: E78.5 Hyperlipidemia, unspecified (principal); E04.2 Nontoxic multinodular goiter; E66.3 Overweight
CPT/HCPCS: 80053; 80061; 83036; 84443

== ENCOUNTER 2025-02-02 01:04 | Outpatient (CLI) | payer MEDICARE, MEDICAID, SELFPAY ==
[2025-02-02 14:57] LABS: ALT 32 U/L (14-59); AST 24 U/L (15-37); Albumin 3.8 g/dL (3.4-5.0); Alkaline Phosphatase 81 U/L (46-116); Anion Gap 4.8 mmol/L (3-11); BUN 14 mg/dL (7-18); Bilirubin, Total 0.2 mg/dL (0.2-1.0); CO2 30.2 mmol/L (21.0-32.0); Calcium 8.8 mg/dL (8.5-10.1); Calculated LDL 46 mg/dL (<100); Chloride 104 mmol/L (98-107); Cholesterol 130 mg/dL (<200); Estimated GFR 66.12 (mL/min/1.73m2); Glucose 125 mg/dL (74-106); HDL Cholesterol 54 mg/dL (>or=50); Potassium 3.9 mmol/L (3.5-5.1); Sodium 139 mmol/L (136-145); TSH (W/Ref FT4) 3.63 uIU/mL (0.36-3.74); Total Protein 7.2 g/dL (6.4-8.2); Triglyceride 152 mg/dL (<150)
== END 2025-02-02 01:05 | disposition home or self-care (01) ==
PROVIDERS: PCP Internal Medicine; Visit Provider Nurse Practitioner Family
DX: Z51.81 Encounter for therapeutic drug level monitoring (principal)
CPT/HCPCS: 36415; 80053; 80061; 84443